=== PATIENT | female | born 1965 | race Two or more races ===

== ENCOUNTER 2021-04-30 07:16 | Day surgery (SDC) | payer OTHER ==
[2021-04-30] MEDS ORDERED: IBU600 MG PO (11:21)
== END 2021-04-30 15:30 | disposition home or self-care (01) ==
LOC: CIR.AMB 07:16
PROVIDERS: ATTEND Obstetrics & Gynecology Gynecology
DX: N84.0 Polyp of corpus uteri (principal); N72 Inflammatory disease of cervix uteri; Z20.822 Contact with and (suspected) exposure to COVID-19

== ENCOUNTER 2024-07-16 06:15 | Day surgery (SDC) | payer OTHER ==
[~2024-07-16 06:15] MED LIST: IBU600 MG PO
[2024-07-16] MEDS ORDERED: fentaNYL CITRATE 50 MCG/ML AMPUL IV PUSH ONE (09:15)
[2024-07-16] MEDS ORDERED: DIPHENHYDRAMINE HCL 50 MG/ML VIAL 1ML IV ONE (09:15)
[2024-07-16] MEDS ORDERED: MIDAZOLAM HCL 2 MG/2 ML VIAL IV ONE (09:15)
[2024-07-16] MEDS ORDERED: ONDANSETRON HCL 2 MG/ML VIAL IV ONE (09:15)
== END 2024-07-16 10:40 | disposition home or self-care (01) ==
LOC: AMB-ENDOS 06:15
PROVIDERS: ATTEND Colon & Rectal Surgery
DX: D12.4 Benign neoplasm of descending colon (principal); K63.5 Polyp of colon

== ENCOUNTER 2025-03-16 06:00 | Day surgery (SDC) | payer OTHER | END 2025-03-16 16:05 | disposition home or self-care (01) | LOC: AMB-ENDOS 06:00 | PROVIDERS: ATTEND Colon & Rectal Surgery | DX: D12.4 Benign neoplasm of descending colon (principal); K63.5 Polyp of colon; K52.89 Other specified noninfective gastroenteritis and colitis ==